=== PATIENT | female | born 1970 | race Caucasian/White ===

== ENCOUNTER 2024-06-30 09:44 | Outpatient (AMB) | payer OTHER, SELFPAY ==
--- OUTSIDE RECORDS SUMMARY | 2024-06-30 09:47 | XMS_ITS | Patient Health Record ---
Author Organization [employer] Address [address] [place] [address] Support Name Relationship Address Phone Giulia Mcconnell Guarantor Unknown [phone] Allergies No Known Allergies Reason For Referral No Information Medications Medication SIG (Take, Route, Frequency, Duration) Notes Start Date End Date Status FLUoxetine HCl 10 MG 3 capsules Orally O nce a day Active Vitamin D3 1.25 MG (88429 UT) 1 tablet Orally once a week Active Social History Tobacco Use: Social History Observation Description Date Details (start date - stop date) Never Smoker NA - NA Tobacco Use/Smoking Question Answer Notes Are you a nonsmoker Alcohol Screen (Audit-C) Question Answer Notes Did you have a drink containing alcohol in the p ast year? No Points 0 Interpretation Negative Problems Problem Type SNOMED Code ICD Code Onset Dates Problem Status W/U Status Risk Notes Problem Moderate recurrent major depression (93693488) Major depressive disorder, recurrent, moderate (F33.1) Active confirmed Problem Generalized anxiety disorder (22315733) Generalized anxiety disorder (F41.1) Active confirmed Problem Dietary management surveillance (185741572) Dietary counseling and surveillance (Z71.3) Active confirmed Problem Body mass index 35.00 to 39.99 (513570001439613 ) Body mass index [BMI] 39.0-39.9, adult (Z68.39) Active confirmed Plan Of Treatment No Information Insurance Providers Payer Name Payer Address Payer Phone Subscriber Number Group Number Insured Name Patient Relationship to Insured Coverage Start Date Coverage End Date [facility] [id number] [place] [address] [id number] Giulia Mcconnell Self - patient is the insured Medical (General) History Medical History History ICD Code Anxiety disorder depression
--- OUTSIDE RECORDS SUMMARY | 2024-06-30 09:47 | XMS_ITS | Data Portability ---
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 On exam, she has a positive spurling's sign on the right. MRI cervical spine shows straightening of cervical lordosis . At C5-6 level there is severe right neural foraminal narrowing with right C6 nerve root compression. There is mild retrolisthesis and spondylosis. I recommend a trial of cervical epidural steroid injection under fluoroscopic guidance. The risks and benefits of the procedure were discussed in detail . An appointment has been booked . She needs a caterpillar driver on the day of the procedure. She has a follow up appointment with Dr. Koch and will check if she is okay to proceed with above injection one month after her surgery. [email or web address] Not available 07/02/2018 14:55:43 07/29/2018 07/29/2018 Giulia Mcconnell is a 47 year old right handed woman with compliants of neck pain radiating into right upper extremity. On exam, she has a positive spurling's sign on the right. MRI cervical spine shows straightening of cervical lordosis . At C5-6 level there is severe right neural foraminal narrowing with right C6 nerve root compression. There is mild retrolisthesis and spondylosis. She is here for a trial of cervical epidural steroid injection under fluoroscopic guidance. The risks and benefits of the procedure were discussed in detail . An appointment has been booked . She needs to follow up in four weeks. [email or web address] Not available 07/29/2018 13:13:00 08/25/2018 08/25/2018 Giulia Mcconnell is a 47 year old right handed woman with compliants of neck pain radiating into right upper extremity. On exam, she has a positive spurling's sign on the right. MRI cervical spine shows straightening of cervical lordosis . At C5-6 level there is severe right neural foraminal narrowing with right C6 nerve root compression. There is mild retrolisthesis and spondylosis. She is here for a follow up after a trial of cervical epidural steroid injection under fluoroscopic guidance. She reports no pain benefit. I recommend a neurosurgical evaluation with Dr. Manley . She may benefit from a trial of gabapentin. [email or web address] Not available 08/25/2018 15:55:08 Plan of Treatment Reminders Order Date Submit Date Provider Last Modified By Organization Details Last Modified Time Details Appointments None record ed. Lab None record ed. Referral None record ed. Procedures None record ed. Surgeries None record ed. Imaging None record ed. Medication Orders None record ed. Patient TargetsNo targets recorded. Patient Instructions Encounter Date Encounter Id Patient Instructions Last Modified By Organization Details Last Modified Time 07/02/2018 [id number] She was advised against bed rest lasting longer than four days and to continue activities as tolerated. [email or web address] Not available 07/02/2018 14:52:49 07/29/2018 [id number] She was advised against bed rest lasting longer than four days and to continue activities as tolerated. [email or web address] Not available 07/29/2018 13:12:22 08/25/2018 [id number] She was advised against bed rest lasting longer than four days and to continue activities as tolerated. [email or web address] Not available 08/25/2018 15:53:55 Reason for Referral None Reported. Problems Name Problem SNOMED Code Status Onset Date Resolution Date Notes Provider Name and Address Organization Details Recorded Time Cervical radiculopathy [id number] Lucero hobbs MD [address] , [address], [place], [address], [facility] - [facility] 13:47:44 Cervical spondylosis without myelopathy 625316091 Lucero hobbs MD [address] , [address], [place], [address], [place] [facility] 9 13:48:03 Degeneration of cervical intervertebral disc 39596543 Active Jake hobbs MD [address] , [address], [place], [address], [place] [facility] 9 13:48:30 Problem Notes None recorded. Procedures Surgical History Date Name Laterality Status Provider Name and Address Organization Details Recorded Time 07/29/19 19 Cervical Epidural Steroid injection under fluroscopic guidance completed Jake Jimenez MD [address] , [address], [place], [address], [facility] - [facility] Management 07/29/2018 13:11:39 Hysterectomy completed Jake Jimenez MD [address] , [address], [place], [address], [facility] - [facility] 07/02/2018 13:51:08 Imaging Results None recorded. Procedure Notes None recorded. Medical Equipment None Reported. Allergies No known drug allergies Medications Name Sig Start Date Stop Date Status Note LastModified by Organization Details LastModified Time prednisone 10 mg tablet 07/02 completed Not Available Not Available Not Available hydrocortison e valerate 0.2 % topical cream 07/02 completed Not Available Not Available Not Available clonazepam 0.5 mg tablet as needed active Not Available Not Available No t Available fluoxetine 10 mg capsule 3 tabs daily active Not Available Not Available No t Available betamethasone dipropionate 0.05 % topical cream 07/02 completed Not Available Not Available Not Available ibuprofen 600 mg tablet 07/02 completed Not Available Not Available Not Available oxycodone 5 mg tablet 07/02 completed Not Available Not Available Not Available trospium 20 mg tablet 07/02 completed Not Available Not Available Not Available ProAir HFA 90 mcg/actuation aerosol inhaler as needed active Not Available Not Available No t Available Myrbetriq 25 mg tablet,extend ed release 07/02 completed Not Available Not Available Not Available Vitals Date Recorded Heart rate Oxygen saturation Oxygen saturation in Arterial blood by Pulse oximetry Body height Body mass index (BMI) Body weight Systolic blood pressure Diastolic blood pressure Provider Name and Address Organization Details Last Updated DateTime 9 84 /min 97 % 97 % 161.29 cm 39.4 kg/m2 724541. 88 g 144 mm[Hg] 76 mm[Hg] Jake hobbs MD [address] , [address], [facility] [place], [address], [place] - [facility] Management 9 13:41:55 Date Recorded Body height Heart rate Oxygen saturation Oxygen saturation in Arterial blood by Pulse oximetry Systolic blood pressure Diastolic blood pressure Provider Name and Address Organization Details Last Updated DateTime 9 161.29 cm 86 /min 96 % 96 % 143 mm[Hg] 74 mm[Hg] Jess Smithzier [facility] Pain [facility] 9 11:37:44 Date Recorded Body height Heart rate Oxygen saturation Oxygen saturation in Arterial blood by Pulse oximetry Systolic blood pressure Diastolic blood pressure Provider Name and Address Organization Details Last Updated DateTime 9 161.29 cm 67 /min 97 % 97 % 124 mm[Hg] 57 mm[Hg] Jess Smithzier [facility] Pain Management 9 15:11:58 Social History Question Answer Notes LastModified by Organizat ion Details LastModified Time Tobacco Smoking Status Never [facility]oker [facility] 04/15/2020 03:16:11 What Is Your Level Of Alcohol Consumption? None [id number] Information not available 04/15/2020 Are You Currently Employed? Yes [employer] [id number] Information not available 04/15/2020 Which Illicit Or Recreational Drugs Have You Used? 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 With Others And Daughter Information not available 07/02/2018 Marital Status Informati on not available 07/02/2018 What Was The Date Of Your Most Recent Tobacco Screening? 08/25/2018 [id number] Information not available 04/15/2020 Sex: Unknown Functional Status None recorded. Mental Status None recorded. Family History Relationship Description Onset Age of this Age Resolved Age Notes LastModified by Organization Details LastModified Time Father No current problems or disability [email or web address] Not available 08/2018 13:52:09 Mother No current problems or disability [email or web address] Not available 08/2018 13:52:09 Medical History No medical history recorded. Gynecological HistoryNo gynecological history recorded. Obstetrics History GPAL:G 0 P 0 0 0 0 Past Encounters Encounter ID Performer Location Encounter Start Date Encounter Closed Date Diagnosis/Indication Diagnosis SNOMED-CT Code Diagnosis ICD10 Code [id number] Jake Jimenez MD PAIN OFFICE [address] [place] [address] 07/02/2018 13:14:19 07/02/2018 15:14:09 Cervical spondylosis without myelopathy 677873788 M47.812 Cervical radiculopathy 39749931 M54.12 Degenerati on of cervical intervertebral disc 57917895 M50.30 [id number] Jake Jimenez MD PAIN OFFICE [address] [place] [address] 07/29/2018 11:27:22 07/29/2018 15:38:54 Cervical spondylosis without myelopathy 069512764 M47.812 Cervical radiculopathy 77626153 M54.12 Degenerati on of cervical intervertebral disc 49910684 M50.30 [id number] Jake Jimenez MD PAIN OFFICE [address] [place] [address] 08/25/2018 14:24:08 08/25/2018 15:55:38 Cervical spondylosis without myelopathy 582388175 M47.812 Cervical radiculopathy 82837827 M54.12 Degenerati on of cervical intervertebral disc 36935666 M50.30 Health Concerns Section Related Observation LastModified by Organization Detai ls LastModified Time None Recorded Concern Status LastModified by Organization Details LastModified Time None Recorded Advance Directives Directive None Recorded Payers Encounter Date Sequence Insurance Name Policy Number Policy Weir Covered Member ID Weir Member ID Guarantor Name 07/02/2018 1 [place] [facility] [place] [place] [employer] [place] [facility] [place] [place] [id number] Giulia Rosendale [id number] Giulia Rosendale 07/29/2018 1 [place] [facility] [place] [place] [employer] [place] ([facility] [place] [place] [id number] Giulia Jayesh [id number] Giulia Jayesh 08/25/2018 1 [place] [facility] ([facility] [place] [place] [id number] Giulia Mcconnell [id number] Giulia Mcconnell Notes Date Note Type Note Provider Name and Address Organization Details Recorded Time 07/02/2018 text/html Giulia Mcconnell is a 47 year old Right handed woman with complaints of neck pain radiating into right upper extremity. The pain started spontaneously five months ago and is becoming greater for the past 3 months. She describes the pain as a burning, shooting pain with numbness and tingling in her right thumb . Current pain level is 5/10. Turning to the right , sitting and having her arm hang by the side aggravates her pain. Shaking her right hand relieves the pain a little. Pain interferes with sleep. She has no history of bladder or bowel incontinence.She is doing a home stretching exercise program with persistent pain.MRI Cervical spine shows mildly reversed cervical lordosis at C5-6 level . At C5-6 level there is severe right neural foraminal narrowing with right C6 nerve root compression. There is mild retrolisthesis and spondylosis.She recently had a partial hysterectomy with pelvic floor repair by Dr. Koch. She has not done physical therapy or had a course of oral steroids . Jake Jimenez MD [address] [address], [place], [address], [facility] 07/07/2018 09:22:00 07/29/2018 text/html She is here for a trial of cervical epidural steroid injection under fluoroscopic guidance. Jake Jimenez MD [address] , [address], [place], [address], [facility] Pain Management 07/31/2018 10:38:44 08/25/2018 text/html She is here for a follow up after a trial of cervical epidural steroid injection under fluoroscopic guidance. She reports no pain benefit. She continues to have neck pain radiating into right upper extremity with numbness. She is trying to avoid lifting and other aggravating factors. She has no history of bladder or bowel incontinence. Jake Jimenez MD [address] , [address], [place], [address], [facility] - [facility] 08/29/2018 11:10:13 OBGyn Episode No OBEpisode recorded.
[2024-06-30 10:05] VITALS: BP 138/80; PULSE 67; O2SAT 99; BMI 41.2
--- NOTE | 2024-06-30 10:05 | A.OFFVIS_ITS ---
Vital Signs 06/30/24 10:05 Height 5 ft 3 in Weight 232 lb 9.403 oz BMI 41.2 BP 138/80 Blood Pressure Location Lt brachial Position Sitting Pulse 67 Pulse Source Pulse Oximeter Pulse Oximetry (%) 99 Oxygen Delivery Method Room Air Intake Visit Reasons: joint pain Intake Note: Patient presents for follow up on joint pain today. Allergies No Known Allergies Allergy (Verified 06/26/24 12:38) HPI HPI joint pain: Details: joint pain. She had poison amy and was homebound for 3 months. Lack of activity of contributed to weight gain. Pain in ankles (75%) and right lateral hip and right shoulder when sleeping. Gel phenomena MS 15 minutes PFSH Surgical History (Updated 06/26/24 @ 12:47 by Hali Peterson CMA) S/P partial hysterectomy Family History (Updated 06/26/24 @ 12:48 by Hali Peterson CMA) Father Rheumatoid arthritis Review of Systems Const All systems reviewed & are unremarkable except as noted in HPI and below Physical Exam Vital Signs: Last Vital Signs Pulse 67 06/30/24 10:05 BP 138/80 06/30/24 10:05 Pulse Ox 99 06/30/24 10:05 Oxygen Delivery Method Room Air 06/30/24 10:05 BMI result Body Mass Index 41.2 Const Other: General: Comfortable Skin: No lesions seen MSK: Tender right shoulder on palpation anteriorly and posteriorly. Good range of motion of bilateral shoulders. Negative painful arc sign. No synovitis. Tender right trochanteric bursa. Good range of motion of bilateral hips. No tenderness of ankles. Good range of motion of bilateral ankles. Assessment & Plan Assessment & Plan (1) Right shoulder pain: Comment: With preserved range of motion. Suspect rotator cuff tendinopathy. I am orderi ng x-ray to evaluate for joint pathology contributing to her pain. We discussed conservative management. She agreed to start physical therapy. Code(s): M25.511 - Pain in right shoulder Category: Medical Qualifiers: Chronicity: chronic Qualified Code(s): M25.511 - Pain in right shoulder; G89.29 - Other chronic pain Plan: X-ray right shoulder ordered PT ordered Return to clinic in 3 months (2) Bilateral ankle pain: Comment: Bilateral ankle pain is chronic. Unremarkable exam. We will obtain x-ray for further evaluation of joint pathology contributing. She agreed to PT for ankle strengthening program. Code(s): M25.571 - Pain in right ankle and joints of right foot; M25.572 - Pain in left ankle and joints of left foot Category: Medical Qualifiers: Chronicity: chronic Qualified Code(s): M25.571 - Pain in right ankle and joints of right foot; M25.572 - Pain in left ankle and joints of left foot; G89.29 - Other chronic pain Plan: Bilateral ankle x-rays ordered PT ordered We discussed importance of supportive footwear Encouraged weight loss Return to clinic in 3 months (3) Trochanteric bursitis, right hip: Comment: Chronic. We discussed conservative management. Code(s): M70.61 - Trochanteric bursitis, right hip Category: Medical Plan: PT ordered Return to clinic in 3 months Orders: Orders XR ankle RT 2V 06/30/24 M25.571 - Pain in right ankle and joints of right foot, M25.572 - Pain in left ankle and joints of left foot XR shoulder RT min 2V 06/30/24 M25.511 - Pain in right shoulder XR ankle LT 2V 06/30/24 M25.571 - Pain in right ankle and joints of right foot, M25.572 - Pain in left ankle and joints of left foot Referrals Physical Medicine and Rehabilitation Referral M25.511 - Pain in right shoulder, M25.571 - Pain in right ankle and joints of right foot, M25.572 - Pain in left ankle and joints of left foot, M70.61 - Trochanteric bursitis, right hip Coding Level of Care Code Est Pt Level 4 (28518) Complex EM visit Add On G2211 Diagnoses Chronic right shoulder pain M25.511; G89.29 Chronicity: chronic Chronic pain of both ankles M25.571; M25.572; G89.29 Chronicity: chronic Trochanteric bursitis, right hip M70.61
== END 2024-06-30 10:48 | disposition home or self-care (01) ==
PROVIDERS: PCP Nurse Practitioner Adult Health; Visit Provider Internal Medicine Rheumatology
DX: M25.511 Pain in right shoulder (principal); G89.29 Other chronic pain; M25.571 Pain in right ankle and joints of right foot; M25.572 Pain in left ankle and joints of left foot; M70.61 Trochanteric bursitis, right hip
CPT/HCPCS: 99214

== ENCOUNTER 2024-06-30 09:44 | Outpatient (REF) | payer OTHER, SELFPAY ==
--- NOTE | ~2024-06-30 | XR_ITS ---
EXAMINATION: Right bilateral ankle and right shoulder. CLINICAL INDICATION: Pain. COMPARISON: None. FINDINGS: Right ankle 3 views: There is no visible acute, dislocation or subluxation seen. The ankle mortise and subtalar joints are normal. There is a small calcaneal heel and retrocalcaneal enthesophytes. The moderate dorsal talonavicular spurring. Left ankle 3 views: The ankle mortise and subtalar joints are normal. There is no visible acute fracture, dislocation or subluxation seen. There is small retrocalcaneal and calcaneal heel enthesophyte. The soft tissues are normal. Right shoulder: The glenohumeral and AC joint space is normal. No visible acute fracture, dislocation or subluxation seen. The soft tissues are normal. XR/XR shoulder RT min 2V IMPRESSION: Unremarkable bilateral ankle exam. Small calcaneal and retrocalcaneal enthesophytes. Unremarkable right shoulder exam Electronically signed by: Corwin Reyes MD 06/30/2024 02:52 PM EST
--- NOTE | ~2024-06-30 | XR_ITS ---
EXAMINATION: Right bilateral ankle and right shoulder. CLINICAL INDICATION: Pain. COMPARISON: None. FINDINGS: Right ankle 3 views: There is no visible acute, dislocation or subluxation seen. The ankle mortise and subtalar joints are normal. There is a small calcaneal heel and retrocalcaneal enthesophytes. The moderate dorsal talonavicular spurring. Left ankle 3 views: The ankle mortise and subtalar joints are normal. There is no visible acute fracture, dislocation or subluxation seen. There is small retrocalcaneal and calcaneal heel enthesophyte. The soft tissues are normal. Right shoulder: The glenohumeral and AC joint space is normal. No visible acute fracture, dislocation or subluxation seen. The soft tissues are normal. XR/XR ankle RT 2V IMPRESSION: Unremarkable bilateral ankle exam. Small calcaneal and retrocalcaneal enthesophytes. Unremarkable right shoulder exam Electronically signed by: Corwin Reyes MD 06/30/2024 02:52 PM EST
--- NOTE | ~2024-06-30 | XR_ITS ---
EXAMINATION: Right bilateral ankle and right shoulder. CLINICAL INDICATION: Pain. COMPARISON: None. FINDINGS: Right ankle 3 views: There is no visible acute, dislocation or subluxation seen. The ankle mortise and subtalar joints are normal. There is a small calcaneal heel and retrocalcaneal enthesophytes. The moderate dorsal talonavicular spurring. Left ankle 3 views: The ankle mortise and subtalar joints are normal. There is no visible acute fracture, dislocation or subluxation seen. There is small retrocalcaneal and calcaneal heel enthesophyte. The soft tissues are normal. Right shoulder: The glenohumeral and AC joint space is normal. No visible acute fracture, dislocation or subluxation seen. The soft tissues are normal. XR/XR ankle LT 2V IMPRESSION: Unremarkable bilateral ankle exam. Small calcaneal and retrocalcaneal enthesophytes. Unremarkable right shoulder exam Electronically signed by: Corwin Reyes MD 06/30/2024 02:52 PM EST
== END 2024-06-30 09:45 | disposition home or self-care (01) ==
LOC: HO.XRAY 09:44
PROVIDERS: PCP Nurse Practitioner Adult Health; Visit Provider Internal Medicine Rheumatology
DX: M25.571 Pain in right ankle and joints of right foot (principal); M25.572 Pain in left ankle and joints of left foot; M25.511 Pain in right shoulder
CPT/HCPCS: 73030; 73600

== ENCOUNTER → 2024-06-30 11:58 | Outpatient (BNV) | payer OTHER, SELFPAY | PROVIDERS: PCP Nurse Practitioner Adult Health; Visit Provider Radiology Diagnostic Radiology | DX: M25.511 Pain in right shoulder (principal); M25.571 Pain in right ankle and joints of right foot; M25.572 Pain in left ankle and joints of left foot | CPT/HCPCS: 73030; 73610 ==

== ENCOUNTER 2024-10-27 09:07 | Outpatient (AMB) | payer OTHER, SELFPAY ==
--- NOTE | 2024-10-27 09:15 | MHC.OFFVIS ---
Vital Signs 10/27/24 09:17 Height 5 ft 5.08 in Weight 228 lb 13.437 oz BMI 38.0 BP 110/80 Blood Pressure Location Lt brachial Position Sitting Respiration 20 Pulse 80 Pulse Source Pulse Oximeter Pulse Oximetry (%) 97 Oxygen Delivery Method Room Air Intake Visit Reasons: Follow Up 3mo Intake Note: Patient presents for follow up on joint pain today. Accompanied by: Self / Same As Patient Allergies No Known Allergies Allergy (Verified 10/27/24 09:23) HPI HPI Follow Up 3mo: Details: Pain improved. She did not go to PT. Pain in right trochanteric bursa is intermittent exacerbated with activity (cleaning for 6 hourse). She has left intermittent heel pain. She has pain in her right shoulder exacerbated with activities at works as just typing and writing. She is working to lose weight. 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 [facility] Surgical History S/P partial hysterectomy Family History Father Rheumatoid arthritis Review of Systems Const All systems reviewed & are unremarkable except as noted in HPI and below Physical Exam Vital Signs: Last Vital Signs Pulse 80 10/27/24 09:17 Resp 20 10/27/24 09:17 BP 110/80 10/27/24 09:17 Pulse Ox 97 10/27/24 09:17 Oxygen Delivery Method Room Air 10/27/24 09:17 BMI result Body Mass Index 38.0 Const Other: General: Comfortable Skin: No lesions seen MSK: Tender right shoulder on palpation anteriorly and posteriorly. Normal range of motion of bilateral shoulders. Negative painful arc sign. No synovitis. No tenderness of trochanteric bursa found. Good range of motion of bilateral hips. No tenderness of ankles. No heel pain. Normal. range of motion of bilateral ankles. Assessment & Plan Assessment & Plan (1) Right shoulder pain: Comment: Chronic, intermittent exacerbated with work. Likely due to rotator cuff tendinopathy. Range of motion is preserved. She agreed to start physical therapy. X-ray right shoulder normal. Code(s): M25.511 - Pain in right shoulder Category: Medical Qualifiers: Chronicity: chronic Qualified Code(s): M25.511 - Pain in right shoulder; G89.29 - Other chronic pain Plan: PT ordered Return to clinic in 6 months (2) Bilateral ankle pain: Comment: Resolved. X-ray of bilateral talotibial joint is normal. Code(s): M25.571 - Pain in right ankle and joints of right foot; M25.572 - Pain in left ankle and joints of left foot Category: Medical Qualifiers: Chronicity: chronic Qualified Code(s): M25.571 - Pain in right ankle and joints of right foot; M25.572 - Pain in left ankle and joints of left foot; G89.29 - Other chronic pain Plan: Monitor clinically (3) Trochanteric bursitis, right hip: Comment: Chronic. We discussed conservative management. Code(s): M70.61 - Trochanteric bursitis, right hip Category: Medical Plan: PT ordered Return to clinic in 3 months (4) Heel spur: Comment: Bilateral on x-ray. She is symptomatic with left heel pain. We discussed conservative management. 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
[2024-10-27 09:17] VITALS: BP 110/80; PULSE 80; RESP 20; O2SAT 97; BMI 38.0
--- OUTSIDE RECORDS SUMMARY | 2024-10-27 09:54 | XMS_ITS ---
Author Organization [facility] [place] Address [address] [place] [address] Care Team Providers Care Equipment Service Engineer Name Role Phone Devora AUGUSTIN, Mayito Primary Care Provider Yael Berger [phone] Encounters Encounter Location Date Provider Diagnosis [facility] [address] [place] [address] 10/12/2024 Yael Cohen Plan Of Treatment Next Appt Details Provider Name:Yael collier, 11/17/2024 04:00:00 PM, [address] [facility], [address] [facility], [place], [address], Progress Notes * Giulia RIOS DDOB:1970 (54 yo F)Acc No.[id number]:10/12/2024 Progress Note Patient:?Giulia RIOS Provider:?Yael Cohen DPM :1970???Age:54 Y???Sex:Female D ate:10/12/2024 Address:[address] [place], [place] [id number] Pcp:Mayito Lozoya MD Subjective: * Chief Complaints: * ??? * Medical History:? Objective: * Vitals:? Assessment: Plan: * Treatment: * Images: * The named appointment provid er may or may not be the originator of this progress note, and it is not deemed complete until electronically signed by the appointment provider. Sign off status: Pending * Provider:?Yael Cohen DPM Date:?0 10/12/2024 Generated for Marimar hightower/Catalina/Jensen on:?10/27/2024 09:53 AM EDT
--- OUTSIDE RECORDS SUMMARY | 2024-10-27 09:54 | XMS_ITS | Data Portability ---
Author Organization [facility], [facility] Address [address] [place] [address] Assessment Encounter Date Assessment Date Assessment LastModified by Organization Details LastModified Time 05/08/2010 05/08/2010 Study: Bilateral screening digital mammogram Comparison: Baseline Findings: The breasts contain?intermediately? ? ?dense tissue. No suspicious microcalcifications, masses, or areas of architectural distortion identified. Impression: No mammographic evidence of malignancy. Routine annual screening recommended. Interpretation made with the benefit of CAD. BI-RADS category 1, negative. Not available 03/14/2011 02:22:44 06/28/2011 06/28/2011 Bilateral digita l screening mammogram: Bilateral full field digital screening mammogram was reviewed with CAD and compared with prior studies. Breast tissue pattern is a mixture of fatty and fibroglandular elements. No dominant mass lesion or suspicious microcalcifications are seen in either breast. Impression: No mammographic evidence of malignancy. Annual screening mammography is recommended. BI-RADS 1: Negative [email or web address] Not available 06/29/2011 08:10:37 Plan of Treatment Reminders Order Date Submit Date Provider Last Modified By Organization Details Last Modified Time Details Appointments None recorded. Lab None recorded. Referral None recorded. Procedures None recorded. Surgeries None recorded. Imaging None recorded. Medication Orders clonazepam 0.5 mg tablet [address] [facility], [address] [place] [address], [address], 3 16:32:07 fluoxetine 10 mg tablet 2012 013 [facility], [address] [place] [address], [address], 3 04:10:39 clotrimazol e-betametha sone 1 %-0.05 % topical cream 2010 011 [facility], [address] [place] [address], [place], [address], 3 05:16:20 Patient TargetsNo targets recorded. Patient Instructions Encounter Date Encounter Id Patient Instructions Last Modified By Organization Details Last Modified Time 02/05/2011 [id number] Well Visit, Ages 18 to 65: Care Instructions JOSE Not available 01/23/2013 05:05:49 04/30/2012 [id number] Well Visit, Ages 18 to 65: Care Instructions JOSE Not available 01/24/2013 03:42:07 My Health To Do List [email or web address] Not available 04/30/2012 16:38:10 10/24/2012 [id number] starting a weigh t loss plan: care instructions JOSE Not available 01/24/2013 04:09:13 25 min visit and over 50% time was spent counseling [email or web address] Not available 10/25/2012 20:27:08 Reason for Referral None Reported. Results Created Date Observation Date Name Description Value Unit Range Abnormal Flag Note LastModifiedBy Organization Detail LastModifiedTime 01/24/2001/23/2011 ALT (SGPT ) ALT 15 U/L (0-31) Not Available [facility] (Centralized Electronic Ordering - All Locations) Patient Can Go To The Location Of Their Choice, 01/23/2011 11:06:13 01/24/2001/23/2011 lipid panel cholesterol, total 199 mg/dL (0-200 ) Not Available [facility] (Centralized Electronic Ordering - All Locations) Patient Can Go To The Location Of Their Choice, 01/23/2011 11:06:15 01/24/2001/23/2011 lipid panel triglyceride 89 mg/dL (0-150 ) Not Available [facility] (Centralized Electronic Ordering - All Locations) Patient Can Go To The Location Of Their Choice, 01/23/2011 11:06:15 01/24/2001/23/2011 lipid panel HDL chol 40 mg/dL (>40) low Not Available [facility] (Centralized Electronic Ordering - All Locations) Patient Can Go To The Location Of Their Choice, 01/23/2011 11:06:15 01/24/2001/23/2011 lipid panel LDL cholesterol, calculated 141 mg/dL (0-130 ) high Not Available [facility] (Centralized Electronic Ordering - All Locations) Patient Can Go To The Location Of Their Choice, [id number] 01/23/2011 11:06:15 01/24/20 11 01/23/2011 lipid panel non HDL cholesterol (calc) 159 mg/dL (0-160 ) Not Available [facility] (Centralized Electronic Ordering - All Locations) Patient Can Go To The Location Of Their Choice, [id number] 01/23/2011 11:06:15 02/11/20 12 02/11/2012 lipid panel cholesterol 207 mg/dL <200 mg/dL haroon able 200-2 39 mg/dL borde rline high >240 mg/dL high Not Available [address], [address], 02/11/2012 14:53:25 02/11/20 12 02/11/2012 lipid panel triglyceride s 135 mg/dL <150 mg/dL jeramie l 150-1 99 mg/dL borde rline high 200-4 99 mg/dL high >500 mg/dL very high Not Available [address], [address], 02/11/2012 14:53:25 02/11/20 12 02/11/2012 lipid panel direct HDL 34 mg/dL Not Available [address], [address], 02/11/2012 14:53:25 02/11/20 12 02/11/2012 lipid panel direct LDL 145 mg/dL risk categ ory LDL goal _ CHD or CHD risk equiv alent s <100 mg/dL (10-y ear risk >20%) 2+ risk facto rs <130 mg/dL (10-y ear risk <= 20%) 0-1 risk facto r? <160 mg/dL ? almos t all peopl e with 0-1 risk facto r have a 10 year risk <10%, thus 10 year risk asses ment in peopl e with 0-1 risk facto r IS not necrenata cates. Not Available [address], [address], 02/11/2012 14:53:25 05/11/20 10 05/08/2010 mammo gram, [place] No observ ation record ed. [facility] (Imaging) [address] , [place], [address], 01/23/2013 04:30:28 06/29/20 11 06/28/2011 routi ne mammo graph y exam, [place] No observ ation record ed. [address], [address], 01/23/2013 05:40:10 Result Notes None recorded. Problems Name Problem SNOMED Code Status Onset Date Resolution Date Notes Provider Name and Address Organization Details Recorded Time Major depression , melancholi c type 651975460 Active Not Available [facility] 3 03:15:46 Obesity 021863785 Active Not Available [facility] 3 03:15:46 Acute stress disorder 31843448 Completed 05/20/2013 Not Available [facility] 3 02:02:48 Knee pain Completed 05/20/2013 Not Available [facility] 3 02:00:43 Tinea pedis 2743726 Active Not Available [facility] 3 03:15:46 Iron deficiency anemia 19124927 Active Not Available [facility] 3 03:15:46 Vitamin D deficiency 82052986 Active Not Available [facility] 3 03:15:46 Pure hyperchole sterolemia 225539806 Active Not Available [facility] 3 03:15:46 Dermatophy tosis of the body Completed 200609/29/2009 Not Available [facility] 3 03:09:34 Candidiasi s of skin and nails Completed 200709/29/2009 Not Available [facility] 3 03:09:34 Allergic contact dermatitis caused by drug in contact with skin 807252964 Completed 200609/29/2009 Not Available [facility] 3 03:09:34 Contusion of upper arm 50728102 Completed 200009/29/2009 Not Available [facility] 3 03:09:34 Acute pharyngiti s 823371314 Completed 200309/29/2009 Not Available [facility] 3 03:09:34 Neck pain 16912895 Completed 200009/29/2009 Not Available [facility] 3 03:09:34 Iron deficiency anemia 34514546 Active Not Available [facility] 3 03:09:34 Left lower quadrant pain 226888655 Completed 200209/29/2009 Not Available [facility] 3 03:09:34 Major depression , melancholi c type 905391072 Active Not Available [facility] 3 03:09:34 Acute stress disorder 07191283 Completed 200209/29/2009 Not Available [facility] 3 03:09:34 Dysfunctio nal uterine bleeding Completed 200009/29/2009 Not Available [facility] 3 03:09:34 Knee pain Completed 09/29/2009 Not Available [facility] 3 03:09:34 Elevated blood-pres sure reading without diagnosis of hypertensi on 821850946 Completed 200409/29/2009 Not Available [facility] 3 03:09:34 Amenorrhea 27552806 Completed 200009/29/2009 Not Available [facility] 3 03:09:34 Contusion of shoulder region 27692268 Completed 200009/29/2009 Not Available [facility] 3 03:09:34 Acute bronchitis 96539063 Completed 200309/29/2009 Not Available [facility] 3 03:09:34 Anorectal disorder 374259587 Completed 200705/08/2010 Not Available [facility] 3 03:09:34 Malaise and fatigue 490916636 Completed 200405/08/2010 Not Available [facility] 3 03:09:34 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 Not Available [facility] 3 03:09:34 Excessive growth affecting management of mother 14871745 Completed 200009/29/2009 Not Available [facility] 3 03:09:34 Contusion of finger 85264334 Completed 200009/29/2009 Not Available [facility] 3 03:09:34 Labor and delivery complicate d by heart rate anomaly 468608721 Completed 200009/29/2009 Not Available [facility] 3 03:09:34 Heart sounds abnormal 862559885 Completed 200005/08/2010 Not Available [facility] 3 03:09:34 Tendinitis 56808818 Completed 200009/29/2009 Not Available [facility] 3 03:09:34 Plantar fasciitis 859030372 Completed 200709/29/2009 Not Available [facility] 3 03:09:34 Vitamin D deficiency 16585951 Active Not Available [facility] 3 03:09:34 Sprain of ankle 76123526 Completed 200609/29/2009 Not Available [facility] 3 03:09:34 Pure hyperchole sterolemia 973326216 Active Not Available [facility] 3 03:09:35 Urticaria 928460134 Completed 200609/29/2009 Not Available [facility] 3 03:09:35 Common cold 99987884 Completed 200109/29/2009 Not Available [facility] 3 03:09:35 Panic disorder without agoraphobi a 08286547 Active 2001 Not Available [facility] 3 03:09:35 Ingrowing nail 470646648 Completed 200309/29/2009 Not Available [facility] 3 03:09:35 On examinatio n - a rash Completed 200009/29/2009 Not Available [facility] 3 03:09:35 Tinea pedis 5605420 Completed 200305/08/2010 Not Available [facility] 3 03:09:35 Female genital organ symptoms 683104238 Completed 200009/29/2009 Not Available [facility] 3 03:09:35 Pain in limb 72032810 Completed 200009/29/2009 Not Available [facility] 3 03:09:35 Closed fracture of one or more phalanges of hand 757685392 Completed 200009/29/2009 Not Available [facility] 3 03:09:35 Vaginitis and vulvovagin itis Completed 200009/29/2009 Not Available [facility] 3 03:09:35 Problem Notes None recorded. Procedures Surgical History None recorded. Imaging Results Imaging Date Name Status LastModified by Organiz ation Details LastModified Time 05/08/2010 mammogram, screening completed [facility]) [address], [place], [address], 01/23/2013 04:30:28 06/28/2011 routine mammography exam, screening completed [facility] [address] [place], [address], 01/23/2013 05:40:10 Procedure Notes None recorded. Medical Equipment None Reported. Allergies No known drug allergies Medications Name Sig Start Date Stop Date Status Note LastModified by Organization Details LastModified Time clonazepa m 0.5 mg tablet Take 1 tablet twice a day by oral route as needed. 2012 active Not Available Not Available Not Avai lable fluoxetin e 10 mg tablet Take 3 tablets every day by oral route. 2012 active Not Available Not Available Not Avai lable fluoxetin e 20 mg tablet Take 1.5 tablets every day by oral route. 2008 active Not Available Not Available Not Avai lable clotrimaz ole-betam ethasone 1 %-0.05 % topical cream Apply to the affected and surround ing areas of skin by topical route 2 times per day in the morning and evening for 2 weeks 2010 active Not Available Not Available Not Avai lable nystatin- triamcino lone 100,000 unit/g-0. 1 % topical cream 02/13 completed Take 1.00 applics twice daily Not Available Not Available Not Available ferrous sulfate 325 mg (65 mg iron) tablet,de layed release 05/08 completed Take 1.00 tabs daily Not Available Not Available Not Available pediatric multivita min-Fl 0.5 mg chewable tablet 05/08 completed Take 1.00 tabs daily Not Available Not Available Not Available clotrimaz ole 1 % topical cream 12/24 completed Take 1.00 applics twice daily Not Available Not Available Not Available multivita min active Takes 1 tab Daily Not Available Not Available Not Available cholecalc iferol (vitamin D3) 1,250 mcg (50,000 unit) capsule Take 1 capsule every week by oral route. 02/13 completed Not Available Not Available Not Available Vitals Date Recorded Body height Body weight Body mass index (BMI) Heart rate Systolic blood pressure Diastolic blood pressure Provider Name and Address Organization Details Last Updated DateTime 0 161.29 cm 53186.8 08221 g 35.8 kg/m2 68 /min 128 mm[Hg] 72 mm[Hg] Tracey Fish [facility] 0 16:36:22 Date Recorded Body height Body weight Body mass index (BMI) Heart rate Systolic blood pressure Diastolic blood pressure Provider Name and Address Organization Details Last Updated DateTime 1 160.02 cm 21769.0 72527 g 36 kg/m2 72 /min 120 mm[Hg] 70 mm[Hg] Jessica Villar [facility] 1 16:56:20 Date Recorded Body height Body weight Body mass index (BMI) Heart rate Systolic blood pressure Diastolic blood pressure Provider Name and Address Organization Details Last Updated DateTime 2 158.75 cm 55529.4 55267 g 38.8 kg/m2 74 /min 118 mm[Hg] 74 mm[Hg] Tyra Sunshine [facility] 2 16:52:01 Date Recorded Body height Body weight Body mass index (BMI) Heart rate Systolic blood pressure Diastolic blood pressure Provider Name and Address Organization Details Last Updated DateTime 3 160.02 cm 12957.8 97398 g 38 kg/m2 85 /min 127 mm[Hg] 76 mm[Hg] Tyra Sunshine LPN [facility] 3 15:21:47 Social History Question Answer Notes LastModified by Organizat ion Details LastModified Time Tobacco Smoking Status Never Smoker Not Available [facility] 05/17/2011 04:53:49 Do You Have An Advance Directive? No Will Mail Us A Copy Information not available 02/02/2009 What Is Your Level Of Caffeine Consumption? Heavy 3+ Cups/day Information not available 12/24/2008 Education 12 Billing And Coding [email or web address] Information not available 09/29/2009 What Is Your Occupation? [employer] [email or web address] Information not available 05/17/2011 Are There Any Guns Present In Your Home? No [email or web address] Information not available 05/17/2011 Live Alone Or With Others? With Others Male Partner And Daughter Rl Information not available 02/07/2009 Patient Has Health Care Proxy Signed And In Chart Yes [email or web address] Information not available 05/17/2011 Marital Status Domestic Partner For 10 Years With Same BF [email or web address] Information not available 09/29/2009 Mosquito Repellent Used Routinely No [email or web address] Information not available 05/17/2011 How Many Children Do You Have? 1 [place] 08/28/2001 Rl [email or web address] Information not available 02/13/2010 Seat Belts Used Routinely Yes [email or web address] Information not available 05/17/2011 Are You Sexually Active? Yes Vasectomy Information not available 05/09/2010 Smoke Alarm In Home Yes [email or web address] Information not available 05/17/2011 Do You Use Sunscreen Routinely? No [email or web address] Information not available 05/17/2011 Sex: Unknown Functional Status None recorded. Mental Status None recorded. Family History Relationship Description Onset Age of this Age Resolved Age Notes LastModified by Organization Details LastModified Time Mother Hyperlipidem ia [email or web address] [id number] Not available 02/09/2013 03:00:31 Mother Alcoholism smoker [email or web address] Not available 02/09/2013 03:00:31 Father Problem A&W [email or web address] [id number] Not available 02/09/2013 03:00:31 Notes:No sibs. Daughter A&W Medical History Condition Response Anxiety Y Depression Y Gynecological HistoryNo gynecological history recorded. Obstetrics History GPAL:G 2 P 1 0 1 0 Type Value Full Term 1 Induced 1 Total 2 Immunizations Vaccine Type Date Status Note Provider Nam e and Address Organization Details Recorded Time Hep B, unspecified formulation 1 completed Not Available [facility] 05/16/2011 05:20:34 influenza, unspecified formulation 3 completed Not Available [facility] 05/16/2011 05:21:07 Td(adult) unspecified formulation 3 completed Not Available [facility] 05/16/2011 05:21:07 Hep B, unspecified formulation 0 completed Not Available [facility] 05/16/2011 05:22:41 Hep B, unspecified formulation 0 completed Not Available [facility] 05/16/2011 05:22:41 influenza, unspecified formulation 0 completed Not Available [facility] 05/16/2011 05:22:41 Influenza, split virus, trivalent, preservative 2 completed Tyra Sunshine LPN [facility] 04/30/2012 16:58:01 Tdap 0 completed Not Available [facility] 07/18/2019 02:26:04 Past Encounters Encounter ID Performer Location Encounter Start Date Encounter Closed Date Diagnosis/Indication Diagnosis SNOMED-CT Code Diagnosis ICD10 Code Diagnosis Note [id number] [facility], OFFICE [address] [place] [address] 07/18/2000 16:15:00 07/21/2008 02:02:29 [id number] [facility], OFFICE [address] [place] [address] 08/20/2000 16:00:00 07/21/2008 02:02:29 [id number] [facility] , [facility] [address] [place] [address] 10/01/2000 00:00:00 07/21/2008 02:02:29 [id number] Radiology , [facility] [address] [place] [address] 10/01/2000 09:45:00 07/21/2008 02:02:29 [id number] FP, [facility], OFFICE [address] [facility] [place] [address] 10/01/2000 09:15:00 07/21/2008 02:02:29 [id number] FP, [facility], OFFICE [address] [place] [address] 10/07/2000 14:15:00 07/21/2008 02:02:29 [id number] FP, [facility], OFFICE [address] [place] [place] [address] 10/11/2000 12:00:00 07/21/2008 02:02:29 [id number] FP, [facility], OFFICE [address] [place] [address] 10/16/2000 14:15:00 07/21/2008 02:02:29 [id number] FP, [facility], OFFICE [address] [place] [address] 12/03/2000 11:30:00 07/21/2008 02:02:29 [id number] FP, [facility], OFFICE [address] [place] [address] 07/23/2000 16:30:00 07/21/2008 02:02:29 [id number] FP, [facility], OFFICE [address] [place] [address] 10/23/2000 15:15:00 07/21/2008 02:02:29 [id number] FP, [facility], OFFICE [address] [place] [address] 10/15/2000 12:15:00 07/21/2008 02:02:29 [id number] Lola Jean MD , [facility], OFFICE [address] [place] [address] 01/17/2001 09:00:00 07/21/2008 02:02:29 [id number] Lola Jean MD Radiology , [facility] [address] [place] [address] 01/27/2001 14:15:00 07/21/2008 02:02:29 [id number] FP, [facility], OFFICE [address] [place] [address] 12/23/2000 09:15:00 07/21/2008 02:02:29 [id number] Lola Jean MD , [facility], OFFICE [address] [place] [address] 01/13/2001 16:00:00 07/21/2008 02:02:29 [id number] Lola Jean MD Radiology , [address] [address] 02/12/2001 11:15:00 07/21/2008 02:02:29 [id number] Lola Jean MD Radiology , [address] [address] 02/12/2001 00:00:00 07/21/2008 02:02:29 [id number] Lola Jean MD , [facility], OFFICE [address] [place] [address] 02/25/2001 11:30:00 07/21/2008 02:02:29 [id number] Lola Jean MD Radiology , [address] [address] 03/17/2001 11:15:00 07/21/2008 02:02:29 [id number] Lola Jean MD Radiology , [address] [address] 04/17/2001 15:45:00 07/21/2008 02:02:29 [id number] Lola Jean MD , [facility], OFFICE [address] [place] [address] 01/31/2001 13:30:00 07/21/2008 02:02:29 [id number] Lola Jean MD , [facility], OFFICE [address] [place] [address] 10/13/2001 10:30:00 07/21/2008 02:02:29 [id number] Lola Jean MD , [facility] [address] [place] [address] 01/06/2002 13:03:32 07/21/2008 02:02:29 [id number] Lola Jean MD , [facility] [address] [place] [address] 01/21/2002 16:44:37 07/21/2008 02:02:29 [id number] Lola Jean MD , [facility] OFF[place] [address] [place] [id number] 07/22/2002 09:34:03 07/21/2008 02:02:29 [id number] Lola Jean MD , [facility] OFFICE [address] [place] [address] [place] [address] 01/27/2003 15:28:41 07/21/2008 02:02:29 [id number] Lola Jean MD [facility] , [address] [place] [address] 04/23/2003 10:35:48 04/23/2003 13:40:28 [id number] Lola Jean MD [facility] - [address] [place] [address] 05/21/2003 11:54:18 05/21/2003 13:52:19 [id number] Lola Jean MD , [facility] [address] [place] [address] [place] [address] 05/21/2003 11:06:55 05/24/2003 11:05:46 [id number] Lola Jean MD , [facility] OFFICE [address] [place] [address] [place] [address] 07/12/2003 15:54:10 07/13/2003 10:01:40 [id number] Lola Jean MD , [facility] OFFICE [address] [place] [address] [place] [address] 07/22/2003 15:16:45 07/23/2003 09:18:37 [id number] Lola Jean MD [facility] - [address] [place] [address] 07/22/2003 16:33:07 07/22/2003 16:33:47 [id number] Lola Jean MD , [facility] OFFICE [address] [place] [address] [place] [address] 04/19/2003 15:14:39 04/21/2003 16:27:58 [id number] Lola Jean MD , [facility] OFFICE [address] [place] [address] [place] [id number] 03/13/2004 10:07:24 03/14/2004 17:41:04 [id number] Lola Jean MD , [facility] OFFICE [address] [place] [address] [place] [address] 05/26/2004 09:47:43 05/29/2004 08:28:22 [id number] Lola Jean MD , [facility] [address] [place] [id number] 06/21/2004 13:30:30 06/22/2004 08:58:42 [id number] MD SAJI Genao, [facility] [address] [place] [id number] 06/20/2004 17:20:30 06/21/2004 17:52:35 [id number] MD SAJI Genao, [facility] [address] [place] [address] 12/12/2004 09:14:17 12/12/2004 09:39:17 [id number] Lola Jean MD , [facility] [address] [place] [id number] 06/12/2005 09:27:17 06/12/2005 17:29:52 [id number] Lola Jean MD , [facility], OFFICE [address] [place] [address] 11/03/2005 09:06:33 11/03/2005 10:24:18 [id number] Lola Jean MD , [facility] [address] [place] [id number] 12/18/2005 16:38:08 12/19/2005 08:20:31 [id number] Lola Jean MD , [address] [place] [address] 02/19/2006 15:52:38 02/20/2006 08:16:04 [id number] Lola Jean MD , [address] [place] [address] 01/14/2007 11:38:01 01/14/2007 16:14:14 [id number] Lola Jean MD , [address] [place] [address] 04/07/2007 14:46:44 07/21/2008 02:02:29 [id number] MD SAJI Genao, [address] [place] [id number] 04/11/2007 16:16:20 04/15/2007 09:44:30 [id number] MD SAJI Genao, [facility] [address] [place] [id number] 04/30/2007 15:43:14 07/21/2008 02:02:29 [id number] Lola Jean MD [facility] - [facility] [address] [place] [id number] 11/21/2007 10:56:35 11/21/2007 10:56:44 [id number] Lola Jean MD [facility], OFFICE [address] [place] [address] 12/19/2007 14:50:38 07/21/2008 02:02:29 [id number] Lola Jean MD , [facility] [address] [place] [id number] 01/28/2008 15:32:07 07/21/2008 02:02:29 [id number] Lola Jean MD [facility] [facility] [address] [place] [id number] 01/28/2008 15:43:11 01/28/2008 15:43:22 [id number] Lola Jean MD [facility] [address] [place] [id number] 01/28/2008 00:00:00 07/21/2008 02:02:29 [id number] Lola Jean MD , [facility] [facility] [address] [place] [address] 06/07/2008 11:05:10 07/02/2008 10:51:26 [id number] Lola Jean MD [address] [place] [address] 10/13/2007 15:56:03 07/21/2008 02:02:[id number] [place] [address] 1 12/24/2008 14:56:42 12/27/2008 09:14:02 [id number] [facility] , [facility] [address] [place] [id number] 12/24/2008 15:19:33 12/29/2008 15:08:[id number] [place] [address] 02/02/2009 15:33:57 02/07/2009 09:10:[id number] [place] [address] 1 09/29/2009 10:02:59 09/30/2009 08:33:34 [id number] , [address] [place] [address] 02/13/2010 07:53:31 02/15/2010 08:02:51 [id number] [facility] , [facility] [address] [place] [id number] 05/08/2010 15:19:06 05/10/2010 15:42:57 [id number] [facility] [address] [place] [address] 05/08/2010 15:44:16 05/09/2010 09:39:19 [id number] , [facility] [address] [place] [address] 02/05/2011 16:22:49 02/07/2011 12:16:36 [id number] [facility] , [facility] [address] [place] [id number] 06/28/2011 07:04:23 07/03/2011 11:47:33 [id number] Shakila Bennett [facility], OFFICE [address] [place] [address] 04/30/2012 16:25:37 04/30/2012 17:49:10 [id number] Tory Rooney MA , [facility] [address] [place] [address] 10/24/2012 14:54:35 10/24/2012 15:54:43 Health Concerns Section Related Observation LastModified by Organization Detai ls LastModified Time None Recorded Concern Status LastModified by Organization Details LastModified Time None Recorded Advance Directives Directive N: will mail us a copy Payers Encounter Date Sequence Insurance Name Policy Number Policy Weir Covered Member ID Weir Member ID Guarantor Name 05/08/2010 1 [facility] ([id number]) [id number] Giulia Archuleta Toby [id number] Giulia [place] 02/05/2011 1 [facility] [id number] Giulia Archuleta [place] [id number] Giulia Toby 06/28/2011 1 [facility] [id number] Giulia Archuleta [place] [id number] Giulia Toby 04/30/2012 1 [facility] [id number] Giulia Archuleta Toby [id number] Giulia [place] 10/24/2012 1 [facility] [id number] Giulia Luis [id number] Giulia Luis Notes Date Note Type Note Provider Name and Address Organization Details Recorded Time 05/08/2010 text/html InitializeSecti on( this.parentNode , 1 ); this.removeNode (true)HPI None recorded. Piedad Hendrix NP [address] [place] [address], [phone], [facility] 05/09/2010 08:04:18 02/05/2011 text/html quite a lot of stress some of it self imposed likes to have things be right. dedrick aet 9 and are laid back and she likes things picked up. needs to exercise. waiting for me allowed her to think about taking care of herself more. Lola Jean MD [address] [place] [address], [phone], [facility] [place] 02/05/2011 20:36:28 OBGyn Episode Ob Episode Information Episode Created Date Number of Fetuses Patient Bloodtype Patient rh Status Prepregnancy Weight lbs Domestic Partner Domestic Partner Phone Father Name Funeral Director'S Assistant Status 02/14/20 10 1 CLOSED Fetus Data First Name Last Name Admitted to NICU Weight (g) Sex Living Outcome Pediatric Complications Fetus ID Race Codes Race Delivery Type 4168.51 048 F Full Term 296 Reggie Calculation Initial Reggie Date Initial Exam Date Initial Exam Provider Initial Ultrasound Date Last Menstrual Period Date Ultra Sound Weeks Gestation 0 Eighteen To Twenty Week Reggie Update Ultra Sound Date Fundal Height At Umbil Quickening Date Ultra Sound Latest Weeks Gestation Final Reggie Confirmed By Final Reggie Confirmed Date Final Reggie Date Ultra Sound Latest Days Gestation 0 0 Menstrual History Last Menstrual Date Menses Monthly On Bcp Conception Prior Menses Frequency Hcg Plus Date Menarche Onset Age Delivery Information Delivery Date Delivery Type Labor Anesthesia Weeks Gestation Incision Type Labor Labor Length Hrs Delivered By Post Complications Tubal Sterilization Discharge Date Comments 2 None 40 false 19 4th degree Discharge Information Feeding Method Contraceptive Method Maternal HG B and HCT Levels Ob Episode Information Episode Created Date Number of Fetuses Patient Bloodtype Patient rh Status Prepregnancy Weight lbs Domestic Partner Domestic Partner Phone Father Name Funeral Director'S Assistant Status 04/09/20 01 CLOSED Fetus Data First Name Last Name Admitted to NICU Weight (g) Sex Living Outcome Pediatric Complications Fetus ID Race Codes Race Delivery Type 218 Reggie Calculation Initial Reggie Date Initial Exam Date Initial Exam Provider Initial Ultrasound Date Last Menstrual Period Date Ultra Sound Weeks Gestation 0 Eighteen To Twenty Week Reggie Update Ultra Sound Date Fundal Height At Umbil Quickening Date Ultra Sound Latest Weeks Gestation Final Reggie Confirmed By Final Reggie Confirmed Date Final Reggie Date Ultra Sound Latest Days Gestation 0 08/28/19 02 0 Menstrual History Last Menstrual Date Menses Monthly On Bcp Conception Prior Menses Frequency Hcg Plus Date Menarche Onset Age Delivery Information Delivery Date Delivery Type Labor Anesthesia Weeks Gestation Incision Type Labor Labor Length Hrs Delivered By Post Complications Tubal Sterilization Discharge Date Comments Discharge Information Feeding Method Contraceptive Method Maternal HG B and HCT Levels Ob Episode Information Episode Created Date Number of Fetuses Patient Bloodtype Patient rh Status Prepregnancy Weight lbs Domestic Partner Domestic Partner Phone Father Name Funeral Director'S Assistant Status 01/14/20 01 1 OPEN Fetus Data First Name Last Name Admitted to NICU Weight (g) Sex Living Outcome Pediatric Complications Fetus ID Race Codes Race Delivery Type F 70 Problems Problem Notes Problem Name Start Date End Date Resolution Snomed Code Not e Major depression, melancholic type [id number] Obesity [id number] Tinea pedis [id number] Iron deficiency anemia [id number] 2 Vitamin D deficiency [id number] Pure hypercholesterolemia 2674 [id number] Reggie Calculation Initial Reggie Date Initial Exam Date Initial Exam Provider Initial Ultrasound Date Last Menstrual Period Date Ultra Sound Weeks Gestation 01/17/2001 0 Eighteen To Twenty Week Reggie Update Ultra Sound Date Fundal Height At Umbil Quickening Date Ultra Sound Latest Weeks Gestation Final Reggie Confirmed By Final Reggie Confirmed Date Final Reggie Date Ultra Sound Latest Days Gestation 0 08/28/19 02 0 Pre-arden Flowsheet Flowsheet Date 01/13/2001 Mahoney Score Blood Edema Fundus Height Fundus Units Glucose Ketones Leukocytes Nitrite Labor Signs Protein Cervic Dilation Cervic Effacement Cervic Station Type Weight in lbs Pre/Post Dialysis Refused BP Diastolic BP Location Tested BP Systolic BP Type Fetus Heart Rate Present Fetus Movement Comments Flowsheet Date 01/17/2001 Mahoney Score Blood Edema Fundus Height Fundus Units Glucose Ketones Leukocytes Nitrite Labor Signs Protein Cervic Dilation Cervic Effacement Cervic Station Type Weight in lbs Pre/Post Dialysis Refused BP Diastolic BP Location Tested BP Systolic BP Type Fetus Heart Rate Present Fetus Movement Comments Flowsheet Date 01/27/2001 Mahoney Score Blood Edema Fundus Height Fundus Units Glucose Ketones Leukocytes Nitrite Labor Signs Protein Cervic Dilation Cervic Effacement Cervic Station Type Weight in lbs Pre/Post Dialysis Refused BP Diastolic BP Location Tested BP Systolic BP Type Fetus Heart Rate Present Fetus Movement Comments Flowsheet Date 01/31/2001 Mahoney Score Blood Edema Fundus Height Fundus Units Glucose Ketones Leukocytes Nitrite Labor Signs Protein Cervic Dilation Cervic Effacement Cervic Station Type Weight in lbs Pre/Post Dialysis Refused BP Diastolic BP Location Tested BP Systolic BP Type Fetus Heart Rate Present Fetus Movement Comments Flowsheet Date 02/12/2001 Mahoney Score Blood Edema Fundus Height Fundus Units Glucose Ketones Leukocytes Nitrite Labor Signs Protein Cervic Dilation Cervic Effacement Cervic Station Type Weight in lbs Pre/Post Dialysis Refused BP Diastolic BP Location Tested BP Systolic BP Type Fetus Heart Rate Present Fetus Movement Comments Flowsheet Date 02/12/2001 Mahoney Score Blood Edema Fundus Height Fundus Units Glucose Ketones Leukocytes Nitrite Labor Signs Protein Cervic Dilation Cervic Effacement Cervic Station Type Weight in lbs Pre/Post Dialysis Refused BP Diastolic BP Location Tested BP Systolic BP Type Fetus Heart Rate Present Fetus Movement Comments Flowsheet Date 02/25/2001 Mahoney Score Blood Edema Fundus Height Fundus Units Glucose Ketones Leukocytes Nitrite Labor Signs Protein Cervic Dilation Cervic Effacement Cervic Station Type Weight in lbs Pre/Post Dialysis Refused BP Diastolic BP Location Tested BP Systolic BP Type Fetus Heart Rate Present Fetus Movement Comments Flowsheet Date 03/17/2001 Mahoney Score Blood Edema Fundus Height Fundus Units Glucose Ketones Leukocytes Nitrite Labor Signs Protein Cervic Dilation Cervic Effacement Cervic Station Type Weight in lbs Pre/Post Dialysis Refused BP Diastolic BP Location Tested BP Systolic BP Type Fetus Heart Rate Present Fetus Movement Comments Flowsheet Date 04/17/2001 Mahoney Score Blood Edema Fundus Height Fundus Units Glucose Ketones Leukocytes Nitrite Labor Signs Protein Cervic Dilation Cervic Effacement Cervic Station Type Weight in lbs Pre/Post Dialysis Refused BP Diastolic BP Location Tested BP Systolic BP Type Fetus Heart Rate Present Fetus Movement Comments Flowsheet Date 10/13/2001 Mahoney Score Blood Edema Fundus Height Fundus Units Glucose Ketones Leukocytes Nitrite Labor Signs Protein Cervic Dilation Cervic Effacement Cervic Station Type Weight in lbs Pre/Post Dialysis Refused BP Diastolic BP Location Tested BP Systolic BP Type Fetus Heart Rate Present Fetus Movement Comments Flowsheet Date 01/06/2002 Mahoney Score Blood Edema Fundus Height Fundus Units Glucose Ketones Leukocytes Nitrite Labor Signs Protein Cervic Dilation Cervic Effacement Cervic Station Type Weight in lbs Pre/Post Dialysis Refused BP Diastolic BP Location Tested BP Systolic BP Type Fetus Heart Rate Present Fetus Movement Comments Flowsheet Date 01/21/2002 Mahoney Score Blood Edema Fundus Height Fundus Units Glucose Ketones Leukocytes Nitrite Labor Signs Protein Cervic Dilation Cervic Effacement Cervic Station Type Weight in lbs Pre/Post Dialysis Refused BP Diastolic BP Location Tested BP Systolic BP Type Fetus Heart Rate Present Fetus Movement Comments Flowsheet Date 07/22/2002 Mahoney Score Blood Edema Fundus Height Fundus Units Glucose Ketones Leukocytes Nitrite Labor Signs Protein Cervic Dilation Cervic Effacement Cervic Station Type Weight in lbs Pre/Post Dialysis Refused BP Diastolic BP Location Tested BP Systolic BP Type Fetus Heart Rate Present Fetus Movement Comments Flowsheet Date 01/27/2003 Mahoney Score Blood Edema Fundus Height Fundus Units Glucose Ketones Leukocytes Nitrite Labor Signs Protein Cervic Dilation Cervic Effacement Cervic Station Type Weight in lbs Pre/Post Dialysis Refused BP Diastolic BP Location Tested BP Systolic BP Type Fetus Heart Rate Present Fetus Movement Comments Flowsheet Date 04/19/2003 Mahoney Score Blood Edema Fundus Height Fundus Units Glucose Ketones Leukocytes Nitrite Labor Signs Protein Cervic Dilation Cervic Effacement Cervic Station Type Weight in lbs Pre/Post Dialysis Refused BP Diastolic BP Location Tested BP Systolic BP Type Fetus Heart Rate Present Fetus Movement Comments Flowsheet Date 04/23/2003 Mahoney Score Blood Edema Fundus Height Fundus Units Glucose Ketones Leukocytes Nitrite Labor Signs Protein Cervic Dilation Cervic Effacement Cervic Station Type Weight in lbs Pre/Post Dialysis Refused BP Diastolic BP Location Tested BP Systolic BP Type Fetus Heart Rate Present Fetus Movement Comments Flowsheet Date 05/21/2003 Mahoney Score Blood Edema Fundus Height Fundus Units Glucose Ketones Leukocytes Nitrite Labor Signs Protein Cervic Dilation Cervic Effacement Cervic Station Type Weight in lbs Pre/Post Dialysis Refused BP Diastolic BP Location Tested BP Systolic BP Type Fetus Heart Rate Present Fetus Movement Comments Flowsheet Date 05/21/2003 Mahoney Score Blood Edema Fundus Height Fundus Units Glucose Ketones Leukocytes Nitrite Labor Signs Protein Cervic Dilation Cervic Effacement Cervic Station Type Weight in lbs Pre/Post Dialysis Refused BP Diastolic BP Location Tested BP Systolic BP Type Fetus Heart Rate Present Fetus Movement Comments Flowsheet Date 07/12/2003 Mahoney Score Blood Edema Fundus Height Fundus Units Glucose Ketones Leukocytes Nitrite Labor Signs Protein Cervic Dilation Cervic Effacement Cervic Station Type Weight in lbs Pre/Post Dialysis Refused BP Diastolic BP Location Tested BP Systolic BP Type Fetus Heart Rate Present Fetus Movement Comments Flowsheet Date 07/22/2003 Mahoney Score Blood Edema Fundus Height Fundus Units Glucose Ketones Leukocytes Nitrite Labor Signs Protein Cervic Dilation Cervic Effacement Cervic Station Type Weight in lbs Pre/Post Dialysis Refused BP Diastolic BP Location Tested BP Systolic BP Type Fetus Heart Rate Present Fetus Movement Comments Flowsheet Date 07/22/2003 Mahoney Score Blood Edema Fundus Height Fundus Units Glucose Ketones Leukocytes Nitrite Labor Signs Protein Cervic Dilation Cervic Effacement Cervic Station Type Weight in lbs Pre/Post Dialysis Refused BP Diastolic BP Location Tested BP Systolic BP Type Fetus Heart Rate Present Fetus Movement Comments Flowsheet Date 03/13/2004 Mahoney Score Blood Edema Fundus Height Fundus Units Glucose Ketones Leukocytes Nitrite Labor Signs Protein Cervic Dilation Cervic Effacement Cervic Station Type Weight in lbs Pre/Post Dialysis Refused BP Diastolic BP Location Tested BP Systolic BP Type Fetus Heart Rate Present Fetus Movement Comments Flowsheet Date 05/26/2004 Mahoney Score Blood Edema Fundus Height Fundus Units Glucose Ketones Leukocytes Nitrite Labor Signs Protein Cervic Dilation Cervic Effacement Cervic Station Type Weight in lbs Pre/Post Dialysis Refused BP Diastolic BP Location Tested BP Systolic BP Type Fetus Heart Rate Present Fetus Movement Comments Flowsheet Date 06/20/2004 Mahoney Score Blood Edema Fundus Height Fundus Units Glucose Ketones Leukocytes Nitrite Labor Signs Protein Cervic Dilation Cervic Effacement Cervic Station Type Weight in lbs Pre/Post Dialysis Refused BP Diastolic BP Location Tested BP Systolic BP Type Fetus Heart Rate Present Fetus Movement Comments Flowsheet Date 06/21/2004 Mahoney Score Blood Edema Fundus Height Fundus Units Glucose Ketones Leukocytes Nitrite Labor Signs Protein Cervic Dilation Cervic Effacement Cervic Station Type Weight in lbs Pre/Post Dialysis Refused BP Diastolic BP Location Tested BP Systolic BP Type Fetus Heart Rate Present Fetus Movement Comments Flowsheet Date 12/12/2004 Mahoney Score Blood Edema Fundus Height Fundus Units Glucose Ketones Leukocytes Nitrite Labor Signs Protein Cervic Dilation Cervic Effacement Cervic Station Type Weight in lbs Pre/Post Dialysis Refused BP Diastolic BP Location Tested BP Systolic BP Type Fetus Heart Rate Present Fetus Movement Comments Flowsheet Date 06/12/2005 Mahoney Score Blood Edema Fundus Height Fundus Units Glucose Ketones Leukocytes Nitrite Labor Signs Protein Cervic Dilation Cervic Effacement Cervic Station Type Weight in lbs Pre/Post Dialysis Refused BP Diastolic BP Location Tested BP Systolic BP Type Fetus Heart Rate Present Fetus Movement Comments Flowsheet Date 11/03/2005 Mahoney Score Blood Edema Fundus Height Fundus Units Glucose Ketones Leukocytes Nitrite Labor Signs Protein Cervic Dilation Cervic Effacement Cervic Station Type Weight in lbs Pre/Post Dialysis Refused BP Diastolic BP Location Tested BP Systolic BP Type Fetus Heart Rate Present Fetus Movement Comments Flowsheet Date 12/18/2005 Mahoney Score Blood Edema Fundus Height Fundus Units Glucose Ketones Leukocytes Nitrite Labor Signs Protein Cervic Dilation Cervic Effacement Cervic Station Type Weight in lbs Pre/Post Dialysis Refused BP Diastolic BP Location Tested BP Systolic BP Type Fetus Heart Rate Present Fetus Movement Comments Flowsheet Date 02/19/2006 Mahoney Score Blood Edema Fundus Height Fundus Units Glucose Ketones Leukocytes Nitrite Labor Signs Protein Cervic Dilation Cervic Effacement Cervic Station Type Weight in lbs Pre/Post Dialysis Refused BP Diastolic BP Location Tested BP Systolic BP Type Fetus Heart Rate Present Fetus Movement Comments Flowsheet Date 01/14/2007 Mahoney Score Blood Edema Fundus Height Fundus Units Glucose Ketones Leukocytes Nitrite Labor Signs Protein Cervic Dilation Cervic Effacement Cervic Station Type Weight in lbs Pre/Post Dialysis Refused BP Diastolic BP Location Tested BP Systolic BP Type Fetus Heart Rate Present Fetus Movement Comments Flowsheet Date 04/07/2007 Mahoney Score Blood Edema Fundus Height Fundus Units Glucose Ketones Leukocytes Nitrite Labor Signs Protein Cervic Dilation Cervic Effacement Cervic Station Type Weight in lbs Pre/Post Dialysis Refused BP Diastolic BP Location Tested BP Systolic BP Type Fetus Heart Rate Present Fetus Movement Comments Flowsheet Date 04/11/2007 Mahoney Score Blood Edema Fundus Height Fundus Units Glucose Ketones Leukocytes Nitrite Labor Signs Protein Cervic Dilation Cervic Effacement Cervic Station Type Weight in lbs Pre/Post Dialysis Refused BP Diastolic BP Location Tested BP Systolic BP Type Fetus Heart Rate Present Fetus Movement Comments Flowsheet Date 04/30/2007 Mahoney Score Blood Edema Fundus Height Fundus Units Glucose Ketones Leukocytes Nitrite Labor Signs Protein Cervic Dilation Cervic Effacement Cervic Station Type Weight in lbs Pre/Post Dialysis Refused BP Diastolic BP Location Tested BP Systolic BP Type Fetus Heart Rate Present Fetus Movement Comments Flowsheet Date 10/13/2007 Maohney Score Blood Edema Fundus Height Fundus Units Glucose Ketones Leukocytes Nitrite Labor Signs Protein Cervic Dilation Cervic Effacement Cervic Station Type Weight in lbs Pre/Post Dialysis Refused BP Diastolic BP Location Tested BP Systolic BP Type Fetus Heart Rate Present Fetus Movement Comments Flowsheet Date 11/21/2007 Mahoney Score Blood Edema Fundus Height Fundus Units Glucose Ketones Leukocytes Nitrite Labor Signs Protein Cervic Dilation Cervic Effacement Cervic Station Type Weight in lbs Pre/Post Dialysis Refused BP Diastolic BP Location Tested BP Systolic BP Type Fetus Heart Rate Present Fetus Movement Comments Flowsheet Date 12/19/2007 Mahoney Score Blood Edema Fundus Height Fundus Units Glucose Ketones Leukocytes Nitrite Labor Signs Protein Cervic Dilation Cervic Effacement Cervic Station Type Weight in lbs Pre/Post Dialysis Refused BP Diastolic BP Location Tested BP Systolic BP Type Fetus Heart Rate Present Fetus Movement Comments Flowsheet Date 01/28/2008 Mahoney Score Blood Edema Fundus Height Fundus Units Glucose Ketones Leukocytes Nitrite Labor Signs Protein Cervic Dilation Cervic Effacement Cervic Station Type Weight in lbs Pre/Post Dialysis Refused BP Diastolic BP Location Tested BP Systolic BP Type Fetus Heart Rate Present Fetus Movement Comments Flowsheet Date 01/28/2008 Mahoney Score Blood Edema Fundus Height Fundus Units Glucose Ketones Leukocytes Nitrite Labor Signs Protein Cervic Dilation Cervic Effacement Cervic Station Type Weight in lbs Pre/Post Dialysis Refused BP Diastolic BP Location Tested BP Systolic BP Type Fetus Heart Rate Present Fetus Movement Comments Flowsheet Date 01/28/2008 Mahoney Score Blood Edema Fundus Height Fundus Units Glucose Ketones Leukocytes Nitrite Labor Signs Protein Cervic Dilation Cervic Effacement Cervic Station Type Weight in lbs Pre/Post Dialysis Refused BP Diastolic BP Location Tested BP Systolic BP Type Fetus Heart Rate Present Fetus Movement Comments Flowsheet Date 06/07/2008 Mahoney Score Blood Edema Fundus Height Fundus Units Glucose Ketones Leukocytes Nitrite Labor Signs Protein Cervic Dilation Cervic Effacement Cervic Station Type Weight in lbs Pre/Post Dialysis Refused BP Diastolic BP Location Tested BP Systolic BP Type Fetus Heart Rate Present Fetus Movement Comments Flowsheet Date 12/24/2008 Mahoney Score Blood Edema Fundus Height Fundus Units Glucose Ketones Leukocytes Nitrite Labor Signs Protein Cervic Dilation Cervic Effacement Cervic Station Type Weight in lbs Pre/Post Dialysis Refused [id number] BP Diastolic BP Location Tested BP Systolic BP Type 80 122 Fetus Heart Rate Present Fetus Movement Comments Flowsheet Date 12/24/2008 Mahoney Score Blood Edema Fundus Height Fundus Units Glucose Ketones Leukocytes Nitrite Labor Signs Protein Cervic Dilation Cervic Effacement Cervic Station Type Weight in lbs Pre/Post Dialysis Refused BP Diastolic BP Location Tested BP Systolic BP Type Fetus Heart Rate Present Fetus Movement Comments Flowsheet Date 02/02/2009 Mahoney Score Blood Edema Fundus Height Fundus Units Glucose Ketones Leukocytes Nitrite Labor Signs Protein Cervic Dilation Cervic Effacement Cervic Station Type Weight in lbs Pre/Post Dialysis Refused 200.538477857261 BP Diastolic BP Location Tested BP Systolic BP Type 72 L arm 118 sitting Fetus Heart Rate Present Fetus Movement Comments Flowsheet Date 09/29/2009 Mahoney Score Blood Edema Fundus Height Fundus Units Glucose Ketones Leukocytes Nitrite Labor Signs Protein Cervic Dilation Cervic Effacement Cervic Station Type Weight in lbs Pre/Post Dialysis Refused 207.236975940978 BP Diastolic BP Location Tested BP Systolic BP Type 68 L arm 112 sitting Fetus Heart Rate Present Fetus Movement Comments Flowsheet Date 02/13/2010 Mahoney Score Blood Edema Fundus Height Fundus Units Glucose Ketones Leukocytes Nitrite Labor Signs Protein Cervic Dilation Cervic Effacement Cervic Station Type Weight in lbs Pre/Post Dialysis Refused 206.741919766828 BP Diastolic BP Location Tested BP Systolic BP Type 76 L arm 108 sitting Fetus Heart Rate Present Fetus Movement Comments Flowsheet Date 05/08/2010 Mahoney Score Blood Edema Fundus Height Fundus Units Glucose Ketones Leukocytes Nitrite Labor Signs Protein Cervic Dilation Cervic Effacement Cervic Station Type Weight in lbs Pre/Post Dialysis Refused BP Diastolic BP Location Tested BP Systolic BP Type Fetus Heart Rate Present Fetus Movement Comments Flowsheet Date 05/08/2010 Mahoney Score Blood Edema Fundus Height Fundus Units Glucose Ketones Leukocytes Nitrite Labor Signs Protein Cervic Dilation Cervic Effacement Cervic Station Type Weight in lbs Pre/Post Dialysis Refused 205.430467532702 BP Diastolic BP Location Tested BP Systolic BP Type 72 L arm 128 sitting Fetus Heart Rate Present Fetus Movement Comments Flowsheet Date 02/05/2011 Mahoney Score Blood Edema Fundus Height Fundus Units Glucose Ketones Leukocytes Nitrite Labor Signs Protein Cervic Dilation Cervic Effacement Cervic Station Type Weight in lbs Pre/Post Dialysis Refused 203.971198119145 BP Diastolic BP Location Tested BP Systolic BP Type 70 L arm 120 sitting Fetus Heart Rate Present Fetus Movement Comments Flowsheet Date 06/28/2011 Mahoney Score Blood Edema Fundus Height Fundus Units Glucose Ketones Leukocytes Nitrite Labor Signs Protein Cervic Dilation Cervic Effacement Cervic Station Type Weight in lbs Pre/Post Dialysis Refused BP Diastolic BP Location Tested BP Systolic BP Type Fetus Heart Rate Present Fetus Movement Comments Flowsheet Date 04/30/2012 Mahoney Score Blood Edema Fundus Height Fundus Units Glucose Ketones Leukocytes Nitrite Labor Signs Protein Cervic Dilation Cervic Effacement Cervic Station Type Weight in lbs Pre/Post Dialysis Refused 215.587506632845 BP Diastolic BP Location Tested BP Systolic BP Type 74 L arm 118 sitting Fetus Heart Rate Present Fetus Movement Comments Flowsheet Date 10/24/2012 Mahoney Score Blood Edema Fundus Height Fundus Units Glucose Ketones Leukocytes Nitrite Labor Signs Protein Cervic Dilation Cervic Effacement Cervic Station Type Weight in lbs Pre/Post Dialysis Refused 214.699676780065 BP Diastolic BP Location Tested BP Systolic BP Type 76 L arm 127 sitting Fetus Heart Rate Present Fetus Movement Comments Menstrual History Last Menstrual Date Menses Monthly On Bcp Conception Prior Menses Frequency Hcg Plus Date Menarche Onset Age Delivery Information Delivery Date Delivery Type Labor Anesthesia Weeks Gestation Incision Type Labor Labor Length Hrs Delivered By Post Complications Tubal Sterilization Discharge Date Comments 200 2 40 Discharge Information Feeding Method Contraceptive Method Maternal HG B and HCT Levels
--- OUTSIDE RECORDS SUMMARY | 2024-10-27 09:54 | XMS_ITS | Patient Health Record ---
Author Organization [facility] Address [address] [facility] [facility] [address] [place] [address] Support Name Relationship Address Phone Giulia Mcconnell Guarantor Unknown [phone] Allergies No Known Allergies Reason For Referral No Information Medications Medication SIG (Take, Route, Frequency, Duration) Notes Start Date End Date Status FLUoxetine HCl 10 MG 3 capsules Orally O nce a day Active Vitamin D3 1.25 MG (97556 UT) 1 tablet Orally once a week [...] Risk Notes Problem Moderate recurrent major depression (96214598) Major depressive disorder, recurrent, moderate (F33.1) Active confirmed Problem Generalized anxiety disorder (91373295) Generalized anxiety disorder (F41.1) Active confirmed Problem Dietary management surveillance (223516522) Dietary counseling and surveillance (Z71.3) Active confirmed Problem Body mass index 35.00 to 39.99 (138311107303238 ) Body mass index [BMI] 39.0-39.9, adult (Z68.39) Active confirmed Plan Of Treatment No Information Insurance Providers Payer Name Payer Address Payer Phone Subscriber Number Group Number Insured Name Patient Relationship to Insured Coverage Start Date Coverage End Date [facility] [id number] [place] [address] [phone] [id number] Giulia Mcconnell Self - patient is the insured Medical (General) History Medical History History ICD Code Anxiety disorder depression
--- OUTSIDE RECORDS SUMMARY | 2024-10-27 09:55 | XMS_ITS | Patient Health Record ---
Author Organization [facility] [place] Address [address] [place] [address] Care Team Providers Care Maintenance Porter Name Role Phone Devora AUGUSTIN, Mayito Primary Care Provider Yael Berger Unavailable [phone] Allergies No Known Allergies Reason For Referral Diagnosis 1 Pain in unspecified foot (M79.673) Referring Provider First Name Bia Referring Provider Last Name Markus Referred Organization [facility] [place] Referred Provider Yael Cohen Referred Address [address] [facility],[place],[address], Referred Provider Specialty Podiatry Referral Priority Routine Medications Medication SIG (Take, Route, Frequency, Duration) Notes Start Date End Date Status Medrol emma 4mg as directed orally a s directed for 6 days 08/03/2024 Active Ciclopirox Olamine 0.77 % 1 application Externally Twice a day to skin of feet including between the toes for 30 days Active Fluoxetine Active Atorvastatin Calcium 10 MG Oral for 30 Days Active Social History Tobacco Use: Social History Observation Description Date Details (start date - stop date) Never Smoker NA - NA Tobacco use other than smoking: Question Answer Notes Are you an other tobacco user? No Tobacco Control (Standard) Question Answer Notes Tobacco use: Nonsmoker AUDIT-C (Standard) Question Answer Notes Did you have a drink containing alcohol in the p ast year? No Points 0 Interpretation Negative Problems Problem Type SNOMED Code ICD Code Onset Dates Problem Status W/U Status Risk Notes Problem Plantar fasciitis of left foot (214384554673687 01) Plantar fasciitis of left foot (M72.2) Active confirmed Problem Interstitial myositis (99287047) Interstitial myositis of left foot (M60.172) Active confirmed Vital Signs Height 5ft 3inch in 08/03/2024 Weight 232 lbs 08/03/2024 BMI 41.09 kg/m2 08/03/2024 Encounters Encounter Location Date Provider Diagnosis [address] [address] 08/03/2024 Yael Cohen Pain in left foot M79.672 ; Plantar fasciitis of left foot M72.2 ; Calcaneal spur, left foot M77.32 ; Interstitial myositis of left foot M60.172 ; Bursitis of left foot M77.52 and Tinea pedis of both feet B35.[address] [address] 08/03/2024 Yael Cohen [address] [address] 10/05/2024 Yael Cohen [address] [address] 08/04/2024 Yael Cohen Assessments Encounter Date Diagnosis (ICD Code) Assessment Notes Treatment Notes Treatment Clinical Notes Section Notes 08/03/2024 Pain in left foot (ICD-10 - M79.672) 08/03/2024 Plantar fasciitis of left foot (ICD-10 - M72.2) Patient Educated with: HEEL CORD STRETCHES.pdf (HEEL CORD STRETCHES.pdf) Patient Educated with: RICE THERAPY.pdf (RICE THERAPY.pdf) 08/03/2024 Calcaneal spur, left foot (ICD-10 - M77.32) 08/03/2024 Interstitial myositis of left foot (ICD-10 - M60.172) 08/03/2024 Bursitis of left foot (ICD-10 - M77.52) 08/03/2024 Tinea pedis of both feet (ICD-10 - B35.3) Plan Of Treatment Pending Test Test Name Order Date X ray : Foot, left 3V 08/03/2024 Next Appt Details Provider Name:Yael collier, 11/17/2024 04:00:00 PM, [address] [facility], [address], [address], Insurance Providers Payer Name Payer Address Payer Phone Subscriber Number Group Number Insured Name Patient Relationship to Insured Coverage Start Date Coverage End Date [facility] [phone] [place] [address] [id number] Giulia Mcconnell Self - patient is the insured Medical (General) History Medical History History ICD Code Anxiety Depression Chicken pox Surgical History Surgery Date(Month/Year) Bladder sling hysterectomy
--- OUTSIDE RECORDS SUMMARY | 2024-10-27 09:55 | XMS_ITS | Data Portability ---
Author Organization [facility], PAIN OFFICE Address [address] [address] [place] [address] Care Team Providers Care Client Portfolio Manager Name Role Phone MORTEZA FRANCE Primary Care [...] has been booked . She needs a truck driver rubbish collector on the day of the procedure. She has a follow up appointment with Dr. Koch and will check if she is okay to proceed with above injection one month after her surgery. milagros Not available 07/02/2018 14:55:43 07/29/2018 07/29/2018 Giulia [...] By Organization Details Last Modified Time 07/02/2018 [id number] She was advised against bed rest lasting longer than four days and to continue activities as tolerated. [email or web address] Not available 07/02/2018 14:52:49 07/29/2018 65501 She was advised against bed rest lasting longer than four days and to continue activities as tolerated. tmanikantan Not available 07/29/2018 13:12:22 08/25/2018 67320 She was advised against bed rest lasting longer than four days and to continue activities as tolerated. tmanikantan Not available 08/25/2018 15:53:55 Reason for Referral None Reported. Problems Name Problem SNOMED Code Status Onset Date Resolution Date Notes Provider Name and Address Organization Details Recorded Time Cervical radiculopathy 36391059 Lucero hobbs MD [address] , [address], [place], [address], [facility] - Pain Management 13:47:44 Cervical spondylosis without myelopathy 304885699 Lucero hobbs MD [address] , [address], [place], [address], [place] [facility] 9 13:48:03 Degeneration of cervical intervertebral disc 97255977 Active Jake hobbs MD [address] [facility] , [address], [place], [address], [place] [facility] 9 13:48:30 Problem Notes None recorded. Procedures Surgical History Date Name Laterality Status Provider Name and Address Organization Details Recorded Time 07/29/19 19 Cervical Epidural Steroid injection under fluroscopic guidance completed Jake Jimenez MD [address] [facility] , [address], [place], [address], [facility] - Pain Management 07/29/2018 13:11:39 Hysterectomy completed Jake Jimenez MD [address] , [address], [place], [address], [facility] - Pain Management 07/02/2018 13:51:08 Imaging Results [...] % 97 % 161.29 cm 39.4 kg/m2 606853. 88 g 144 mm[Hg] 76 mm[Hg] Jake hobbs MD [address] [facility] , [address], [facility] [place], [address], [place] - Pain Management 9 13:41:55 Date Recorded Body height Heart rate Oxygen saturation Oxygen saturation in Arterial blood by Pulse oximetry Systolic blood pressure Diastolic blood pressure Provider Name and Address Organization Details Last Updated DateTime 9 161.29 cm 86 /min 96 % 96 % 143 mm[Hg] 74 mm[Hg] Jess Smithzier [facility] Pain Management 9 11:37:44 Date Recorded Body height Heart rate Oxygen saturation Oxygen saturation in Arterial blood by Pulse oximetry Systolic blood pressure Diastolic blood pressure Provider Name and Address Organization Details Last Updated DateTime 9 161.29 cm 67 /min 97 % 97 % 124 mm[Hg] 57 mm[Hg] Jess Smithzier [facility] Pain Management 9 15:11:58 Social History Question Answer Notes LastModified by Organizat ion Details LastModified Time Tobacco Smoking Status Never Smoker Not Available [facility] 04/15/2020 03:16:11 What Is Your Level Of Alcohol Consumption? 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 With Others And Daughter Information not available 07/02/2018 Marital Status Informati on not available 07/02/2018 What Was The Date Of Your Most Recent Tobacco Screening? 08/25/2018 [id number] Information not available 04/15/2020 Sex: Unknown Functional [...] SNOMED-CT Code Diagnosis ICD10 Code Diagnosis Note [id number] Jake Jimenez MD PAIN OFFICE [address] [place] [address] 07/02/2018 13:14:19 07/02/2018 15:14:09 Cervical spondylosis without myelopathy 718920493 M47.812 Cervical radiculopathy 69504047 M54.12 Degenerati on of cervical intervertebral disc 55470364 M50.30 15467 Jake Jimenez MD PAIN OFFICE [address] [place] [address] 07/29/2018 11:27:22 07/29/2018 15:38:54 Cervical spondylosis without myelopathy 312063762 M47.812 Cervical radiculopathy 55946543 M54.12 Degenerati on of cervical intervertebral disc 10152106 M50.30 83557 Jake Jimenez MD PAIN OFFICE [address] [place] [address] 08/25/2018 14:24:08 08/25/2018 15:55:38 Cervical spondylosis without myelopathy 695782211 M47.812 Cervical radiculopathy 31274195 M54.12 Degenerati on of cervical intervertebral disc 97990273 M50.30 Health Concerns Section Related Observation LastModified by Organization Detai ls LastModified Time None Recorded Concern Status LastModified by Organization Details LastModified Time None Recorded Advance Directives Directive None Recorded Payers Encounter Date Sequence Insurance Name Policy Number Policy Weir Covered Member ID Weir Member ID Guarantor Name 07/02/2018 1 [place]: [facility] [id number] [place] ([facility] [id number] Giulia Jayesh [id number] Giulia Jayesh 07/29/2018 1 [place] [facility] [employer] [place] ([facility] [id number] Giulia Redfield [id number] Giulia Jayesh 08/25/2018 1 [place] [facility] ([facility] [id number] Giulia Mcconnell [id number] Giulia Mcconnell Notes Date Note Type [...] oral steroids . Jake Jimenez MD [address] [facility] [address] [place] [address], [place], [address], [facility] 07/07/2018 09:22:00 07/29/2018 text/html She is here for a trial of cervical epidural steroid injection under fluoroscopic guidance. Jake Jimenez MD [address] , [address], [place], [address], [facility] Pain Management 07/31/2018 10:38:44 08/25/2018 text/html She [...] or bowel incontinence. Jake Jimenez MD [address] [facility] [address] , [address], [place], [address], [facility] - Pain Management 08/29/2018 11:10:13 OBGyn Episode No OBEpisode recorded.
--- OUTSIDE RECORDS SUMMARY | 2024-10-27 09:55 | XMS_ITS ---
Author Organization [facility] Address [address] [place] [address] Care Team Providers Care Manager Water Wastewater Name Role Phone Devora AUGUSTIN, Mayito Primary Care Provider Yael Berger [phone] REASON FOR VISIT Update Demographics - Personal Info Encounters Encounter Location Date Provider Diagnosis [facility] [address] [place] [address] 08/04/2024 Yael Cohen Plan Of Treatment Next Appt Details Provider Name:Yael collier, 11/17/2024 04:00:00 PM, [address] [facility], [place] [address], , [address], Progress Notes * Giulia RIOS DDOB:1970 (54 yo F)Acc No.[id number]:08/04/2024 Patient:?Giulia RIOS :1970???Age:53 Y???Sex:Female Address:[address] [place] [address], [address] * * Date:?
--- OUTSIDE RECORDS SUMMARY | 2024-10-27 09:55 | XMS_ITS ---
Author Organization [facility] Address [address] [place] [address] Care Team Providers Care Cemetery Vault Installer Name Role Phone Devora AUGUSTIN, Mayito Primary Care Provider Yael Berger [phone] REASON FOR VISIT Reschedule Encounters Encounter Location Date Provider Diagnosis [facility] [address] [place] [address] 10/05/2024 Yael Cohen Plan Of Treatment Next Appt Details Provider Name:Yael collier, 11/17/2024 04:00:00 PM, [address] [facility], [place] [address], [place], [address], Progress Notes * Giulia RIOS DDOB:1970 (54 yo F)Acc No.[id number]:10/05/2024 Patient:?Giulia RIOS :1970???Age:54 Y???Sex:Female Address:[address] [place] [address], [place], [address] * true * Date:? Generated for Printi ng/Farockyg/eTransmitting on:?10/27/2024 09:55 AM EDT
== END 2024-10-27 09:58 | disposition home or self-care (01) ==
LOC: HO.RHES 09:09
PROVIDERS: PCP Nurse Practitioner Adult Health; Visit Provider Internal Medicine Rheumatology
DX: M25.511 Pain in right shoulder (principal); G89.29 Other chronic pain; M25.571 Pain in right ankle and joints of right foot; M25.572 Pain in left ankle and joints of left foot; M70.61 Trochanteric bursitis, right hip; M77.32 Calcaneal spur, left foot
CPT/HCPCS: 99213

== ENCOUNTER → 2024-10-27 09:07 | Outpatient (BNVA) | payer OTHER, SELFPAY | PROVIDERS: PCP Nurse Practitioner Adult Health; Visit Provider Internal Medicine Rheumatology ==